=== PATIENT | female | born 1960 | race American Indian/Alaskan Native ===

== ENCOUNTER 2020-11-12 22:09 | Emergency (ER) | payer SELFPAY ==
[2020-11-12] MEDS ORDERED: Ibuprofen 400 MG Tab PO ONE (23:00)
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
[2020-11-13 01:02] LABS: BLOOD UREA NITROGEN,BUN 28 mg/dL (7.0-18.0); CARBON DIOXIDE,CO2 23.3 mmol/L (21.0-32.0); CHLORIDE,CL 105 mmol/L (98-107); GLUCOSE RANDOM 105 mg/dL (74-106); POTASSIUM,K 4.1 mmol/L (3.5-5.1); SODIUM,NA 138 mmol/L (136-145)
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
== END 2020-11-13 00:26 | disposition left against medical advice (07) ==
LOC: MW.ED 22:09
DX: S70.12XA Contusion of left thigh, initial encounter (principal); N17.9 Acute kidney failure, unspecified; Z72.0 Tobacco use; Z88.8 Allergy status to other drugs, medicaments and biological substances; Y04.0XXA Assault by unarmed brawl or fight, initial encounter
CPT/HCPCS: 36415; 71045; 72125; 72170; 73552; 80053; 80179; 85025; 93005; 99285; A9270; 93010; 99284